=== PATIENT | female | born 1950 | race Caucasian/White ===

== ENCOUNTER → 2017-03-11 | Day surgery (SDC) | payer OTHER ==
[~2017-03-11] MED LIST: DEXAMETHASONE SOD PHOS 4 MG/ML VIAL OTHER ONE; EPINEPHrine HCL (1:1000) 1 MG/ML VIAL OTHER ONE; FISH300C2 PO; KETOROLAC TROMETHAMINE 30 MG/ML (IVP) VIAL ONE; LACTATED RINGER'S 1000 ML INJ 1,000 ML ONE; MIDAZOLAM HCL 2 MG/2 ML VIAL ONE; MOXIFLOXACIN 0.5% OPHT SOLN 3 ML BTL ONE; ONDANSETRON HCL 4 MG/2 ML VIAL IV PUSH ONE; OYST500T77 PO; PHENYLEPHRINE HCL 10% OPTH SOLN 5 ML BTL ONE; PROPOFOL 200 MG/20 ML AMP IV ONE; SODIUM CHLORIDE 0.9% 10 ML VIAL IV FLUSH ONE; TETRACAINE 0.5% OPTH SOLN 15 ML BTL ONE; TOBRAMYCIN 0.3%/DEXAMETHASONE 0.1% OPHT SUSP 5 ML BTL ONE; TOBRAMYCIN/DEXAMETHASONE OPTH OINT 3.5 GM TUBE LEFT EYE ONE; TRIAMCINOLONE ACETONIDE 40 MG/ML VIAL ONE; VITA500T10 PO; VITAMINE; ceFAZolin INJ 1,000 MG VIAL ONE; prednisoLONE ACETATE 1% OPHT SUSP 5 ML BTL ONE
--- NOTE | 2017-03-12 09:05 | MP ---
cc: YENI FUENTES MD DATE OF SURGERY 03/11/2017 PREOPERATIVE DIAGNOSIS Chronic total retinal detachment left eye. POSTOPERATIVE DIAGNOSIS Chronic total retinal detachment left eye. PROCEDURE Complex retinal detachment repair, pars plana vitrectomy, endolaser, air-fluid exchange, insertion of 16% C3F8 gas, scleral buckle, removal of proliferative vitreoretinopathy, left eye. COMPLICATIONS None BLOOD LOSS Less than [address] Pereira general INDICATIONS FOR THE PROCEDURE This is a delightful patient who presented with significant vision loss of her left eye. The patient reports that vision had decreased for over one month. The patient was found to have a total retinal detachment with a large retinal defect and proliferative vitreoretinopathy. The patient elected for surgical correction in hopes to regain some vision. PROCEDURE NOTE After informed consent was obtained, the patient brought to the operating room. General anesthesia was established. The left eye was prepped and draped in a sterile fashion with Betadine in the conjunctival fornix. A three port pars plana vitrectomy was established with a self-retaining infusion cannula. Core vitreous was evacuated and vitreous traction to the peripheral retina was relieved. Proliferative vitreoretinopathy was noted at the edge of the lateral retinal defects and was removed with a Jona's pick. A 42 scleral buckle was placed with 5-0 Mersilene in each quadrant. Attention was now directed towards the vitrectomy. PFO was instilled and the retina reattached. Intraretinal forces precluded the retina from completely attaching and the height of the scleral buckle was adjusted. This allowed malposition of the retina to the underlying PE. Laser applied surrounding the infratemporal large retinal defects 360 degrees. Air-fluid exchange was carried out and the retina remained nicely attached. Then 16% C3F8 gas was instilled. Trocars were removed and the sclerotomy was closed with 7-0 Vicryl sutures, two sutures. Conjunctiva was reapproximated with 6-0 plain gut. MD CASPER Thomas/HALI /11:02 PM /8:46 AM [facility]
== END | disposition home or self-care (01) ==
LOC: ESDC 09:09
PROVIDERS: ATTEND Ophthalmology
DX: H33.052 Total retinal detachment, left eye (principal)
CPT/HCPCS: 00145; 67113; J0171; J0690; J1100; J1885; J2250; J2405; J3010; J3301; J7120